=== PATIENT | female | born 1930 | race Caucasian/White ===

== ENCOUNTER 2017-04-12 12:33 | Observation (INO) | payer MEDICARE ==
--- NOTE | 2017-04-12 14:27 | ED ---
General Adult HPI - General Chief complaint: Weakness Stated complaint: Fast Heartbeat,Flu exposure Time Seen by Provider: 04/12/17 14:27 Source: family, RN notes reviewed, old records reviewed Mode of arrival: wheelchair Limitations: no limitations - History of Present Illness Initial comments: This is an 78-year-old female ER for evaluation. Patient coming in for evaluation of fever and not feeling well for 3 days. Patient has no chest pain no shortness of breath, no cough or congestion, patient's poor strain secondary clinical history of dementia. Patient does have history of 5 blood pressure high cholesterol. Recent exposure to influenza. Patient's brought in by family who is providing history - Related Data Home Medications Medication Instructions Recorded Confirmed Donepezil [Aricept] 10 mg PO HS 02/18/16 04/12/17 Ipratropium [place] 0.06%Nasal 2 spray NASAL TID 02/18/16 04/12/17 [Atrovent Nasal] Ofloxacin [Ofloxacin 0.3% Otic 5 drops BOTH EARS BID 02/18/16 04/12/17 Soln] Pravastatin Sodium [Pravachol] 40 mg PO HS 02/18/16 04/12/17 Ramelteon [Rozerem] 8 mg PO DAILY PRN 02/18/16 04/12/17 traMADol HCl [Ultram] 50 mg PO BID PRN 02/18/16 04/12/17 Cholecalciferol [Vitamin D3] 1,000 unit PO DAILY 04/12/17 04/12/17 Memantine [Namenda] 10 mg PO BID 04/12/17 04/12/17 Allergies Allergy/AdvReac Type Severity Reaction Status Date / Time No Known Allergies Allergy Verified 04/12/17 16:25 Review of Systems ROS Statement: Those systems with pertinent positive or pertinent negative responses have been documented in the HPI. ROS Other: All systems not noted in ROS Statement are negative. Past Medical History Past Medical History: Dementia, Hearing Disorder / Deafness, Hyperlipidemia, Hypertension Additional Past Medical History / Comment(s): per daughter - irregular heart beat/ History of Any Multi-Drug Resistant Organisms: None Reported Past Surgical History: Hysterectomy Past Psychological History: No Psychological Hx Reported Smoking Status: Former smoker Past Alcohol Use History: None Reported - Past Family History Mother Family Medical History: Coronary Artery Disease (CAD) Brother(s) Family Medical History: Coronary Artery Disease (CAD) Father Additional Family Medical History / Comment(s): etoh General Exam Limitations: no limitations General appearance: alert, in no apparent distress Head exam: Present: atraumatic, normocephalic, normal inspection Eye exam: Present: normal appearance, PERRL, EOMI. Absent: scleral icterus, conjunctival injection, periorbital swelling ENT exam: Present: normal exam, mucous membranes moist Neck exam: Present: normal inspection. Absent: tenderness, meningismus, lymphadenopathy Respiratory exam: Present: normal lung sounds bilaterally. Absent: respiratory distress, wheezes, rales, rhonchi, stridor Cardiovascular Exam: Present: regular rate, normal rhythm, normal heart sounds. Absent: systolic murmur, diastolic murmur, rubs, gallop, clicks GI/Abdominal exam: Present: soft, normal bowel sounds. Absent: distended, tenderness, guarding, rebound, rigid Extremities exam: Present: normal inspection, full ROM, normal capillary refill. Absent: tenderness, pedal edema, joint swelling, calf tenderness Back exam: Present: normal inspection Neurological exam: Present: alert, oriented X3, CN II-XII intact Psychiatric exam: Present: normal affect, normal mood Skin exam: Present: warm, dry, intact, normal color. Absent: rash Course Vital Signs 04/12/17 04/12/17 13:06 16:22 Temperature 100.8 F H Pulse Rate 84 94 Respiratory 20 17 Rate Blood Pressure 132/62 108/57 O2 Sat by Pulse 94 L 98 Oximetry - Reevaluation(s) Reevaluation #1: 04/12/17 16:49 Patient has no change in symptoms, again unable to give any history or symptoms EKG Findings - EKG Comments: EKG Findings:: EKG shows normal sinus rhythm rate of 79, MN 146, QRS 74, QTc 412 Medical Decision Making - Medical Decision Making 78 female here for evaluation of fever, fever not feeling well. Patient hasn't no complaints were unable to give complaints secondary to dementia, will x-ray and urine are negative patient be admitted to rule out bacteremia, put on IV antibiotics and IV hydration - Lab Data Result diagrams: 04/12/17 14:50 04/12/17 14:50 Lab Results 04/12/17 04/12/17 04/12/17 Range/Units 14:37 14:50 14:50 WBC 7.2 (3.8-10.6) k/uL RBC 4.49 (3.80-5.40) m/uL Hgb 13.8 (11.4-16.0) gm/dL Hct 41.7 (34.0-46.0) % MCV 92.9 (80.0-100.0) fL MCH 30.7 (25.0-35.0) pg MCHC 33.0 (31.0-37.0) g/dL RDW 13.0 (11.5-15.5) % Plt Count 211 (150-450) k/uL Neutrophils % 62 % Lymphocytes % 23 % Monocytes % 11 % Eosinophils % 1 % Basophils % 0 % Neutrophils # 4.5 (1.3-7.7) k/uL Lymphocytes # 1.7 (1.0-4.8) k/uL Monocytes # 0.8 (0-1.0) k/uL Eosinophils # 0.1 (0-0.7) k/uL Basophils # 0.0 (0-0.2) k/uL PT (9.0-12.0) sec INR (<1.1) APTT (22.0-30.0) sec Sodium (137-145) mmol/L Potassium (3.5-5.1) mmol/L Chloride (98-107) mmol/L Carbon Dioxide (22-30) mmol/L Anion Gap mmol/L BUN (7-17) mg/dL Creatinine (0.52-1.04) mg/dL Est GFR (MDRD) Af Amer (>60 ml/min/1.73 sqM) Est GFR (MDRD) Non-Af (>60 ml/min/1.73 sqM) Glucose (74-99) mg/dL Plasma Lactic Acid [place] (0.7-2.0) mmol/L Calcium (8.4-10.2) mg/dL Phosphorus (2.5-4.5) mg/dL Magnesium (1.6-2.3) mg/dL Total Bilirubin (0.2-1.3) mg/dL AST (14-36) U/L ALT (9-52) U/L Alkaline Phosphatase (38-126) U/L Total Creatine Kinase 33 (30-135) U/L CK-MB (CK-2) 0.9 (0.0-2.4) ng/mL CK-MB (CK-2) Rel Index 2.7 Troponin I 0.013 (0.000-0.034) ng/mL Total Protein (6.3-8.2) g/dL Albumin (3.5-5.0) g/dL Urine Color Urine Appearance (Clear) Urine pH (5.0-8.0) Ur Specific Fraser (1.001-1.035) Urine Protein (Negative) Urine Glucose (UA) (Negative) Urine Ketones (Negative) Urine Blood (Negative) Urine Nitrite (Negative) Urine Bilirubin (Negative) Urine Urobilinogen (<2.0) mg/dL Ur Leukocyte Esterase (Negative) Urine RBC (0-5) /hpf Urine WBC (0-5) /hpf Urine Mucus (None) /hpf Influenza Type A RNA Not Detected (Not Detectd) Influenza Type B (PCR) Not Detected (Not Detectd) 04/12/17 04/12/17 04/12/17 Range/Units 14:50 14:50 16:00 WBC (3.8-10.6) k/uL RBC (3.80-5.40) m/uL Hgb (11.4-16.0) gm/dL Hct (34.0-46.0) % MCV (80.0-100.0) fL MCH (25.0-35.0) pg MCHC (31.0-37.0) g/dL RDW (11.5-15.5) % Plt Count (150-450) k/uL Neutrophils % % Lymphocytes % % Monocytes % % Eosinophils % % Basophils % % Neutrophils # (1.3-7.7) k/uL Lymphocytes # (1.0-4.8) k/uL Monocytes # (0-1.0) k/uL Eosinophils # (0-0.7) k/uL Basophils # (0-0.2) k/uL PT 10.4 (9.0-12.0) sec INR 1.0 (<1.1) APTT 20.4 L (22.0-30.0) sec Sodium 136 L (137-145) mmol/L Potassium 4.5 (3.5-5.1) mmol/L Chloride 100 (98-107) mmol/L Carbon Dioxide 27 (22-30) mmol/L Anion Gap 9 mmol/L BUN 15 (7-17) mg/dL Creatinine 0.70 (0.52-1.04) mg/dL Est GFR (MDRD) Af Amer >60 (>60 ml/min/1.73 sqM) Est GFR (MDRD) Non-Af >60 (>60 ml/min/1.73 sqM) Glucose 117 H (74-99) mg/dL Plasma Lactic Acid [place] 0.9 (0.7-2.0) mmol/L Calcium 9.7 (8.4-10.2) mg/dL Phosphorus 3.6 (2.5-4.5) mg/dL Magnesium 1.9 (1.6-2.3) mg/dL Total Bilirubin 0.5 (0.2-1.3) mg/dL AST 21 (14-36) U/L ALT 30 (9-52) U/L Alkaline Phosphatase 55 (38-126) U/L Total Creatine Kinase (30-135) U/L CK-MB (CK-2) (0.0-2.4) ng/mL CK-MB (CK-2) Rel Index Troponin I (0.000-0.034) ng/mL Total Protein 6.2 L (6.3-8.2) g/dL Albumin 3.6 (3.5-5.0) g/dL Urine Color Urine Appearance (Clear) Urine pH (5.0-8.0) Ur Specific Fraser (1.001-1.035) Urine Protein (Negative) Urine Glucose (UA) (Negative) Urine Ketones (Negative) Urine Blood (Negative) Urine Nitrite (Negative) Urine Bilirubin (Negative) Urine Urobilinogen (<2.0) mg/dL Ur Leukocyte Esterase (Negative) Urine RBC (0-5) /hpf Urine WBC (0-5) /hpf Urine Mucus (None) /hpf Influenza Type A RNA (Not Detectd) Influenza Type B (PCR) (Not Detectd) 04/12/17 Range/Units 16:12 WBC (3.8-10.6) k/uL RBC (3.80-5.40) m/uL Hgb (11.4-16.0) gm/dL Hct (34.0-46.0) % MCV (80.0-100.0) fL MCH (25.0-35.0) pg MCHC (31.0-37.0) g/dL RDW (11.5-15.5) % Plt Count (150-450) k/uL Neutrophils % % Lymphocytes % % Monocytes % % Eosinophils % % Basophils % % Neutrophils # (1.3-7.7) k/uL Lymphocytes # (1.0-4.8) k/uL Monocytes # (0-1.0) k/uL Eosinophils # (0-0.7) k/uL Basophils # (0-0.2) k/uL PT (9.0-12.0) sec INR (<1.1) APTT (22.0-30.0) sec Sodium (137-145) mmol/L Potassium (3.5-5.1) mmol/L Chloride (98-107) mmol/L Carbon Dioxide (22-30) mmol/L Anion Gap mmol/L BUN (7-17) mg/dL Creatinine (0.52-1.04) mg/dL Est GFR (MDRD) Af Amer (>60 ml/min/1.73 sqM) Est GFR (MDRD) Non-Af (>60 ml/min/1.73 sqM) Glucose (74-99) mg/dL Plasma Lactic Acid [place] (0.7-2.0) mmol/L Calcium (8.4-10.2) mg/dL Phosphorus (2.5-4.5) mg/dL Magnesium (1.6-2.3) mg/dL Total Bilirubin (0.2-1.3) mg/dL AST (14-36) U/L ALT (9-52) U/L Alkaline Phosphatase (38-126) U/L Total Creatine Kinase (30-135) U/L CK-MB (CK-2) (0.0-2.4) ng/mL CK-MB (CK-2) Rel Index Troponin I (0.000-0.034) ng/mL Total Protein (6.3-8.2) g/dL Albumin (3.5-5.0) g/dL Urine Color Yellow Urine Appearance Clear (Clear) Urine pH 6.0 (5.0-8.0) Ur Specific Fraser 1.011 (1.001-1.035) Urine Protein Trace H (Negative) Urine Glucose (UA) Negative (Negative) Urine Ketones Negative (Negative) Urine Blood Negative (Negative) Urine Nitrite Negative (Negative) Urine Bilirubin Negative (Negative) Urine Urobilinogen <2.0 (<2.0) mg/dL Ur Leukocyte Esterase Trace H (Negative) Urine RBC <1 (0-5) /hpf Urine WBC 2 (0-5) /hpf Urine Mucus Rare H (None) /hpf Influenza Type A RNA (Not Detectd) Influenza Type B (PCR) (Not Detectd) - Radiology Data Radiology results: report reviewed (Chest x-ray is negative for acute disease), image reviewed Disposition Clinical Impression: Dehydration, Fever Narrative: r/o Bacteremia Disposition: HOME SELF-CARE Condition: Good Referrals: Chip Palacios MD [Primary Care Provider] - 1-2 days
[2017-04-12] MEDS ORDERED: SODIUM CHLORIDE 0.9% 1,000 ML IV STA ×2 (14:36)
[2017-04-12] MEDS ORDERED: ACETAMINOPHEN TAB 325 MG TAB PO STA (14:36)
[2017-04-12] MEDS ORDERED: ONDANSETRON 4 MG/2 ML VIAL IVP STA (14:36)
[2017-04-12] MEDS ORDERED: IBUPROFEN 600 MG TAB PO STA (14:36)
[2017-04-12 15:17] LABS: Basophils % (A) 0 %; CH 30.8; CHCM 33.3; Eosinophils # (A) 0.1 k/uL (0-0.7); Eosinophils % (A) 1 %; HCT 41.7 % (34.0-46.0); HDW 2.39; HGB 13.8 gm/dL (11.4-16.0); Luc # (Auto) 0.21; Luc % (Auto) 3; Lymphocytes # (A) 1.7 k/uL (1.0-4.8); Lymphocytes % (A) 23 %; MCH 30.7 pg (25.0-35.0); MCV 92.9 fL (80.0-100.0); Mean Platelet Volume 7.2; Monocytes # (A) 0.8 k/uL (0-1.0); Monocytes % (A) 11 %; Neutrophils # (A) 4.5 k/uL (1.3-7.7); Neutrophils % (A) 62 %; RBC 4.49 m/uL (3.80-5.40); WBC 7.2 k/uL (3.8-10.6); WBC (Perox) 7.45
[2017-04-12 15:29] LABS: ALT 30 U/L (9-52); AST 21 U/L (14-36); Alkaline Phosphatase 55 U/L (38-126); Anion Gap 9 mmol/L; Blood Urea Nitrogen 15 mg/dL (7-17); Calcium 9.7 mg/dL (8.4-10.2); Carbon Dioxide 27 mmol/L (22-30); Chloride 100 mmol/L (98-107); Glucose 117 mg/dL (74-99); Magnesium 1.9 mg/dL (1.6-2.3); Non-African American GFR(MDRD) >60 (>60 ml/min/1.73 sqM); Phosphorous 3.6 mg/dL (2.5-4.5); Potassium 4.5 mmol/L (3.5-5.1); Sodium 136 mmol/L (137-145); Total Bilirubin 0.5 mg/dL (0.2-1.3); Total Protein 6.2 g/dL (6.3-8.2)
--- NOTE | 2017-04-12 16:23 | XR ---
EXAMINATION TYPE: XR chest 2V DATE OF EXAM: 04/12/2017 4:02 PM COMPARISON: NONE INDICATION: Weakness TECHNIQUE: Single frontal view of the chest is obtained. FINDINGS: The heart size is normal. The pulmonary vasculature is normal. Minimal linear infiltrate is the lingula adjacent to the cardiac apex. Lungs are otherwise clear. IMPRESSION: 1. Subtle minimal atelectasis left base
[2017-04-12 16:24] LABS: Appearance,Urine Clear (Clear); Bilirubin,Urine Negative (Negative); Glucose,Urine (UA) Negative (Negative); Ketones,Urine Negative (Negative); Leukocyte Esterase,Urine Trace (Negative); Mucus,Urine Rare /hpf; Nitrite,Urine Negative (Negative); Particle Count 2071; Protein,Urine Trace (Negative); RBC,Urine <1 /hpf (0-5); Specific Gravity,Urine 1.011 (1.001-1.035); UA Billing (MACRO vs. MICRO) MICRO; Urobilinogen,Urine <2.0 mg/dL (<2.0); WBC,Urine 2 /hpf (0-5)
[2017-04-12 16:28] LABS: Prothrombin Time 10.4 sec (9.0-12.0)
[2017-04-12 16:29] LABS: Creatine Kinase MB 0.9 ng/mL (0.0-2.4); Troponin I 0.013 ng/mL (0.000-0.034)
[2017-04-12 16:32] LABS: Partial Thromboplastin Time 20.4 sec (22.0-30.0)
[2017-04-12] MEDS ORDERED: PNEUMONIA PROTOCOL UTILIZED 1 EACH MISC PO PRN (16:50)
[2017-04-12] MEDS ORDERED: IPRATROPIUM-ALBUTEROL 3 ML NEB INHALATION PRN (16:50)
[2017-04-12] MEDS: SODIUM CHLORIDE 0.9% 1,000 ML IV SCH (20:39)
[2017-04-13 00:54] VITALS: RESP 16
[2017-04-13] MEDS: SODIUM CHLORIDE 0.9% 1,000 ML IV SCH ×2 (04:52→13:55)
--- NOTE | 2017-04-13 08:24 | P.HPIM ---
History of Present Illness H&P Date: 04/13/17 Chief Complaint: Fever This is a history and physical an 86-year-old white female with known history of dementia who has been spiking a fever for the last 3 days. She was seen by my nurse practitioner who said that if she continued to have a decline, that she should be evaluated. ER evaluation showed possible left lower lobe pneumonia with atelectasis. The patient however has now been stabilizing. Element of dehydration was also noted. Urinalysis is negative. She does not complain of any chest pain but hasn't underlying history dementia Review of Systems ROS unobtainable: due to mental status Past Medical History Past Medical History: Dementia, Hearing Disorder / Deafness, Hyperlipidemia, Osteoarthritis (OA) Additional Past Medical History / Comment(s): PT IS POOR HISTORIAN. 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 HAD 2 PET DOGS. NO OUTSIDE SERVICES, NO MEDICAL EQUIPMENT. Smoking Status: Former smoker Past Alcohol Use History: Occasional Additional Past Alcohol Use History / Comment(s): STARTED AT AGE 16 QUIT AGE 38 SMOKED 1 PPD Past Drug Use History: None Reported - Past Family History Mother Family Medical History: Coronary Artery Disease (CAD) Brother(s) Family Medical History: Coronary Artery Disease (CAD) Father Additional Family Medical History / Comment(s): etoh Medications and Allergies Home Medications Medication Instructions Recorded Confirmed Type Donepezil [Aricept] 10 mg PO HS 02/18/16 04/12/17 History Ipratropium [place] 0.06%Nasal 2 spray NASAL TID 02/18/16 04/12/17 History [Atrovent Nasal] Ofloxacin [Ofloxacin 0.3% Otic 5 drops BOTH EARS BID 02/18/16 04/12/17 History Soln] Pravastatin Sodium [Pravachol] 40 mg PO HS 02/18/16 04/12/17 History Ramelteon [Rozerem] 8 mg PO DAILY PRN 02/18/16 04/12/17 History traMADol HCl [Ultram] 50 mg PO BID PRN 02/18/16 04/12/17 History Cholecalciferol [Vitamin D3] 1,000 unit PO DAILY 04/12/17 04/12/17 History Memantine [Namenda] 10 mg PO BID 04/12/17 04/12/17 History Allergies Allergy/AdvReac Type Severity Reaction Status Date / Time No Known Allergies Allergy Verified 04/12/17 16:25 Physical Exam Vitals: Vital Signs Temp Pulse Pulse Resp BP BP Pulse Ox 04/13/17 00:52 98.0 F 82 16 155/67 93 L 04/12/17 20:56 99.1 F 86 18 139/63 95 04/12/17 19:10 99.4 F 91 16 136/63 94 L 04/12/17 16:22 94 17 108/57 98 04/12/17 13:06 100.8 F H 84 20 132/62 94 L Intake and Output 04/12/17 04/13/17 04/13/17 22:59 06:59 14:59 Intake Total 990 Balance 990 Intake: IV 400 Sodium Chloride 0.9% 1, 400 000 ml @ 100 mls/hr IV . Q10H [facility] Rx#:[id number] Oral 590 Other: Voiding Method Toilet # Voids 2 3 - Constitutional General appearance: no acute distress - EENT Eyes: abnormal pupil - Neck Neck: no lymphadenopathy - Respiratory Respiratory: right: CTA, left: diminished - Cardiovascular Rhythm: regular - Gastrointestinal General gastrointestinal: soft, no tenderness - Psychiatric Psychiatric: A&O x's 3, appropriate affect Results CBC & Chem 7: 04/12/17 14:50 04/12/17 14:50 Labs: Abnormal Lab Results - Last 24 Hours (Table) 04/12/17 04/12/17 04/12/17 Range/Units 14:50 16:00 16:12 APTT 20.4 L (22.0-30.0) sec Sodium 136 L (137-145) mmol/L Glucose 117 H (74-99) mg/dL Total Protein 6.2 L (6.3-8.2) g/dL Urine Protein Trace H (Negative) Ur Leukocyte Esterase Trace H (Negative) Urine Mucus Rare H (None) /hpf Microbiology - Last 24 Hours (Table) 04/12/17 16:12 Urine Culture - Preliminary Urine,Catheterized Thrombosis Risk Factor Assmnt - Choose All That Apply Any of the Below Risk Factors Present?: Yes Other Risk Factors: Yes Each Risk Factor Represents 3 Points: Age 75 years or older Other congenital or acquired thrombophilia - If yes, enter type in comment: No Thrombosis Risk Factor Assessment Total Risk Factor Score: 3 Thrombosis Risk Factor Assessment Level: Moderate Risk Assessment and Plan (1) Dehydration Status: Acute (2) Fever Status: Acute Plan: Will anticipate discharge if tolerating diet later today or She seems to be "out of the briggs." At this time See orders otherwise. Time with Patient: Less than 30
[2017-04-13 08:48] VITALS: BP 168/73; PULSE 89; TEMP 98.7
[2017-04-13] MEDS ORDERED: ENOXAPARIN 40 MG/0.4 ML SYRINGE SQ SCH (09:00)
--- NOTE | 2017-04-13 09:30 | XR ---
EXAMINATION TYPE: XR chest 2V DATE OF EXAM: 04/13/2017 6:47 AM COMPARISON: 04/12/2017 TECHNIQUE: PA and lateral views submitted. HISTORY: Pneumonia FINDINGS: Central interstitial pattern seen with lower lobe subsegmental infiltrate. Scoliotic curvature with d iffuse osteopenia and arthropathy of the shoulders. No pneumothorax. IMPRESSION: 1. Increasing interstitial pattern correlate for interstitial venous congestion or pneumonitis. Atypi hermilo pneumonia also a consideration. 2. Basilar atelectasis or early infiltrate. Findings stable.
--- NOTE | 2017-04-13 14:09 | P.DS ---
Providers Date of admission: 04/12/17 16:50 Attending physician: Chip Palacios Primary care physician: Chip Palacios - Discharge Diagnosis(es) (1) Dehydration Current Visit: Yes Status: Acute (2) Fever Current Visit: Yes Status: Acute Hospital Course: This is a discharge summary on an 78-year-old white female essentially admitted for fever. Question left sided pneumonia. However, after hydration she did quite well. She has not underlying history of dementia. I did discuss with her daughter who would wish to have her a walker for fall risk. She is discharged in stable condition readings back to her baseline. She will follow- up with me in approximately 5-7 days. Patient Condition at Discharge: Good Plan - Discharge Summary New Discharge Prescriptions: Cefuroxime Axetil [Ceftin] 500 mg PO BID #14 tab Discharge Medication List Donepezil [Aricept] 10 mg PO HS 02/18/16 [History] Ipratropium [place] 0.06%Nasal [Atrovent Nasal 0.06%] 2 spray NASAL TID [History] Ofloxacin [Ofloxacin 0.3% Otic Soln] 5 drops BOTH EARS BID 02/18/16 [History] Pravastatin Sodium [Pravachol] 40 mg PO HS 02/18/16 [History] Ramelteon [Rozerem] 8 mg PO DAILY PRN 02/18/16 [History] traMADol HCl [Ultram] 50 mg PO BID PRN 02/18/16 [History] Cholecalciferol [Vitamin D3] 1,000 unit PO DAILY 04/12/17 [History] Memantine [Namenda] 10 mg PO BID 04/12/17 [History] Cefuroxime Axetil [Ceftin] 500 mg PO BID #14 tab 04/13/17 [Rx] Follow up Appointment(s)/Referral(s): Chip Palacios MD [Primary Care Provider] - 3 Days Discharge Disposition: HOME SELF-CARE
== END 2017-04-13 15:00 | disposition home or self-care (01) ==
LOC: EC 12:33 → INTOOBSV 16:50 → 5MS5E 16:50
PROVIDERS: ADMIT Family Medicine; ATTEND Family Medicine
DX: E86.0 Dehydration (principal); F03.90 Unspecified dementia, unspecified severity, without behavioral disturbance, psychotic disturbance, mood disturbance, and anxiety; R50.9 Fever, unspecified; R53.1 Weakness; H91.91 Unspecified hearing loss, right ear; M19.90 Unspecified osteoarthritis, unspecified site; E78.5 Hyperlipidemia, unspecified; E78.00 Pure hypercholesterolemia, unspecified; I10 Essential (primary) hypertension; R00.9 Unspecified abnormalities of heart beat; F50.9 Eating disorder, unspecified; Z91.81 History of falling; Z79.899 Other long term (current) drug therapy; Z87.891 Personal history of nicotine dependence; Z82.49 Family history of ischemic heart disease and other diseases of the circulatory system; Z20.828 Contact with and (suspected) exposure to other viral communicable diseases
CPT/HCPCS: 96361 ×3; 96365; 96375; 99285; 36415; 93005; 80053; 82550; 82553; 83605; 83735; 84100; 84484; 85025; 85610; 85730; 81001; 87040; 87086; 87502; 71020 ×2; G0378 ×2; J2405; J0696